=== PATIENT | male | born 1930 | race Caucasian/White ===

== ENCOUNTER 2018-02-14 10:49 | Emergency (ER) | payer OTHER ==
[~2018-02-14] VITALS: Ht 182.9 cm; Wt 73.7 kg
[2018-02-14 11:10] VITALS: BP 163/88; PULSE 76; RESP 26; TEMP 97.5; O2SAT 100
--- NOTE | 2018-02-14 11:42 | RADRPT ---
EXAM DATE/TIME: 02/14/2018 11:29 [place] COMPARISON: No previous studies available for comparison. INDICATIONS : Chest pain and shortness of breath on and off for 6 months. MEDICAL HISTORY : Asthma. Irregular heartbeat. Renal cancer. SURGICAL HISTORY : Right nephrectomy. ENCOUNTER: Initial ACUITY: 4 - 6 months PAIN SCORE: 2/10 LOCATION: Bilateral mid chest. FINDINGS: PA and lateral views of the chest demonstrate the lungs to be symmetrically aerated without evidence of mass, infiltrate or effusion. The cardiomediastinal contours are unremarkable. Osseous structure s are intact with degenerative changes in both shoulders. Spurring of the dorsal spine. CONCLUSION: 1. No acute cardiopulmonary process 2. 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 Malvin Flynn MD on February 14, 2018 at 11:38 Board Certified Radiologist. This report was verified electronically.
[2018-02-14] MEDS ORDERED: PROPOFOL 200 MG/20 ML AMP IV ONE (12:00)
[2018-02-14] MEDS ORDERED: METOPROLOL TARTRATE 5 MG/5 ML VIAL IV ONE (12:00)
[2018-02-14] MEDS ORDERED: DEXAMETHASONE SOD PHOS 4 MG/ML VIAL IV ONE (12:00)
[2018-02-14] MEDS ORDERED: SODIUM CHLORID 0.9% 500 ML INJ 500 ML IV ONE (12:00)
[2018-02-14] MEDS ORDERED: ROCURONIUM INJ 50 MG/5 ML SYRINGE IV PUSH ONE (12:00)
[2018-02-14] MEDS ORDERED: NEOSTIGMINE 5 MG/5 ML SYRINGE IV PUSH ONE (12:00)
[2018-02-14] MEDS ORDERED: ePHEDrine/NS 25 MG/5 ML SYRINGE IV ONE (12:00)
[2018-02-14] MEDS ORDERED: PHENYLEPH/NS 1000 MCG/10 ML SYR IV ONE (12:00)
[2018-02-14] MEDS ORDERED: GLYCOPYRROLATE 1 MG/5 ML SYRINGE IV PUSH ONE (12:00)
[2018-02-14] MEDS ORDERED: ONDANSETRON HCL 4 MG/2 ML VIAL IV ONE (12:00)
--- NOTE | 2018-02-14 12:45 | PD ---
HPI Chief Complaint: Cardiac Complaint Time Seen by Provider: 11:10 Travel History International Travel<30 days: No Contact w/Intl Traveler<30days: No Traveled to known affect area: No History of Present Illness HPI 87-year-old male with significant cardiac disease presents to the emergency department with his for evaluation of worsening shortness of breath. Patient was to be having surgical intervention with Dr. Waters today on his heart. The states that they do not know what it would be until they "open him up." Patient states his shortness of breath has gotten worse over the weekend. He can hardly do any activity without significant shortness of breath , having to bend over to catch his breath. His states that he cannot live like this. He does report pain across his chest with episodes of lightheaded sensation. PFSH Past Medical History Arthritis: Yes Asthma: Yes Autoimmune Disease: No Blood Disorders: No Heart Rhythm Problems: Yes Cancer: No Cardiovascular Problems: Yes High Cholesterol: No Chest Pain: No Congestive Heart Failure: No COPD: No Glaucoma: No Genitourinary: Yes Hypertension: No Kidney Stones: No Musculoskeletal: Yes Neurologic: No Psychiatric: No Respiratory: Yes Myocardial Infarction: No Renal Failure: No Sickle Cell Disease: No Sleep Apnea: No Past Surgical History Abdominal Surgery: No AICD: No Cardiac Surgery: No Ear Surgery: No Endocrine Surgery: No Eye Surgery: Yes Genitourinary Surgery: No Gynecologic Surgery: No Pacemaker: No Thoracic Surgery: No Social History Tobacco Use: No Allergies-Medications (Allergen,Severity, Reaction): Coded Allergies: levofloxacin (Verified Allergy, Unknown, 02/14/18) Reported Meds & Prescriptions Reported Meds & Active Scripts Active Reported Vitamin D3 (Cholecalciferol) 2,000 Unit Cap 2,000 Units PO DAILY Vitamin C (Ascorbic Acid) 250 Mg Chew 250 Mg CHEW BID Eliquis (Apixaban) 5 Mg Tab 5 Mg PO BID Review of Systems Except as stated in HPI: all other systems reviewed are Neg Physical Exam Narrative This is a well-nourished but chronically ill male patient. He is in a wheelchair. He is short of breath while talking to me. His does most of the talking. He is mildly tachypneic. He has normal heart rate. He speaks clearly to me. Data Data Last Documented VS Vital Signs Date Time Temp Pulse Resp B/P (MAP) Pulse Ox O2 Delivery O2 Flow Rate FiO2 02/14/18 13:45 98.2 76 18 186/108 (134) 100 Orders Orders Electrocardiogram (02/14/18 11:14) Basic Metabolic Panel (Bmp) (02/14/18 11:14) Ckmb (Isoenzyme) Profile (02/14/18 11:14) Complete Blood Count With Diff (02/14/18 11:14) Magnesium (Mg) (02/14/18 11:14) Prothrombin Time / Inr (Pt) (02/14/18 11:14) Act Partial Throm Time (Ptt) (02/14/18 11:14) Troponin I (02/14/18 11:14) Chest, Pa & Lat (02/14/18 11:14) Type And Screen (02/14/18 12:45) Diet Heart Healthy (02/14/18 Lunch) Outpt In Bed W No Obs Services (02/14/18 ) Electrophysiology Study Cath (02/14/18 ) IV (02/14/18 13:06) Consent (02/14/18 13:06) ^ Preps (02/14/18 13:06) Urinary Catheter Management GENEVIEVE.Q8H (02/14/18 13:06) ^ Obtain (02/14/18 13:07) ^ Lab Studies (02/14/18 13:07) ^ Write Order (02/14/18 13:07) ^ Iv Setup For Or (02/14/18 13:07) IV (02/14/18 13:07) ^ Iv Piggyback For Or (02/14/18 13:07) Bedside Glucose .Prior to OR (02/14/18 13:07) ^ Medication Indications (02/14/18 13:07) Lactated Ringer's 1000 Ml Inj (Lr 1000 M (02/14/18 14:15) Sodium Chlorid 0.9% 500 Ml Inj (Ns 500 M (02/14/18 14:15) Metoprolol Tartrate (Lopressor) (02/14/18 14:15) Povidone Iod 5% Antisepsis Kit (Betadine (02/14/18 14:15) Chlorhexidine 2% Cloth (Chlorhexidine 2% (02/14/18 14:15) Insulin Human Regular Inj (Novolin R Inj (02/14/18 14:15) Sodium Chlorid 0.9% 500 Ml Inj (Ns 500 M (02/14/18 14:15) Lorazepam (Ativan) (02/14/18 14:15) Fentanyl Inj (Fentanyl Inj) (02/14/18 19:18) Amiodarone Inj (Cordarone Inj) (02/14/18 19:29) Amiodarone Inj (Cordarone Inj) (02/14/18 19:49) Diet Heart Healthy (02/15/18 Breakfast) Prothrombin Time / Inr (Pt) (02/15/18 06:00) Act Partial Throm Time (Ptt) (02/15/18 06:00) Electrocardiogram (02/14/18 ) Electrocardiogram (02/15/18 ) Notify Dr: Blood Pressure (02/14/18 19:58) Notify Dr: Other (02/14/18 19:58) Vital Signs (Adult) Q15MX4,Q30MX4,Q1HX4,QS (02/14/18 19:58) Act Value . ORDERED (02/14/18 19:58) ^ Sheath Care (02/14/18 19:58) Remove Urinary Catheter .ONCE (02/14/18 19:58) ^ Sand Bag (02/14/18 19:58) Activity Bed Rest (02/14/18 19:58) Oxycodone-Acetamin 5-325 Mg (Percocet (02/14/18 20:00) Oxycodone-Acetamin 5-325 Mg (Percocet (02/14/18 20:00) Lorazepam Inj (Ativan Inj) (02/14/18 20:00) Atropine Inj (Atropine Inj) (02/14/18 20:00) Sodium Chlor 0.9% 250 Ml Inj (Ns 250 Ml (02/14/18 20:00) Metoclopramide Inj (Reglan Inj) (02/14/18 20:00) Ondansetron Inj (Zofran Inj) (02/14/18 20:00) Lidocaine 1% Inj (50 Ml) (Xylocaine 1% I (02/14/18 20:00) Bacitracin Oint Packet (Bacitracin Oint (02/14/18 20:00) Apixaban (Eliquis) (02/14/18 21:00) Cholecalciferol (Vitamin D3) (02/15/18 09:00) Amiodarone (Cordarone) (02/14/18 21:00) Dexamethasone Inj (Decadron Inj) (02/14/18 20:50) Diet Heart Healthy (02/14/18 Dinner) Electrocardiogram (02/14/18 ) Electrocardiogram (02/15/18 ) Notify Dr: Blood Pressure (02/14/18 21:16) Notify Dr: Other (02/14/18 21:16) Vital Signs (Adult) Q15MX4,Q30MX4,Q1HX4,QS (02/14/18 21:16) Act Value . ORDERED (02/14/18:16) ^ Sheath Care (02/14/18:16) Remove Urinary Catheter .ONCE (02/14/18 21:16) ^ Sand Bag (02/14/18 21:16) Activity Bed Rest (02/14/18 21:16) Oxycodone-Acetamin 5-325 Mg (Percocet (02/14/18 21:30) Oxycodone-Acetamin 5-325 Mg (Percocet (02/14/18 21:30) Lorazepam Inj (Ativan Inj) (02/14/18 21:30) Atropine Inj (Atropine Inj) (02/14/18 21:30) Sodium Chlor 0.9% 250 Ml Inj (Ns 250 Ml (02/14/18 21:30) Metoclopramide Inj (Reglan Inj) (02/14/18 21:30) Ondansetron Inj (Zofran Inj) (02/14/18 21:30) Lidocaine 1% Inj (50 Ml) (Xylocaine 1% I (02/14/18 21:30) Bacitracin Oint Packet (Bacitracin Oint (02/14/18 21:30) [facility] Nursing Information (02/14/18 20:45) Labs Laboratory Tests Test 02/14/18 12:07 White Blood Count 6.5 TH/MM3 Red Blood Count 4.05 MIL/MM3 Hemoglobin 13.4 GM/DL Hematocrit 40.3 % Mean Corpuscular Volume 99.6 FL Mean Corpuscular Hemoglobin 33.2 PG Mean Corpuscular Hemoglobin Concent 33.3 % Red Cell Distribution Width 13.4 % Platelet Count 215 TH/MM3 Mean Platelet Volume 8.4 FL Neutrophils (%) (Auto) 69.2 % Lymphocytes (%) (Auto) 20.5 % Monocytes (%) (Auto) 6.1 % Eosinophils (%) (Auto) 3.1 % Basophils (%) (Auto) 1.1 % Neutrophils # (Auto) 4.5 TH/MM3 Lymphocytes # (Auto) 1.3 TH/MM3 Monocytes # (Auto) 0.4 TH/MM3 Eosinophils # (Auto) 0.2 TH/MM3 Basophils # (Auto) 0.1 TH/MM3 CBC Comment AUTO DIFF Differential Comment AUTO DIFF CONFIRMED Prothrombin Time 10.5 SEC Prothromb Time International Ratio 1.0 RATIO Activated Partial Thromboplast Time 22.8 SEC Blood Urea Nitrogen 28 MG/DL Creatinine 1.43 MG/DL Random Glucose 91 MG/DL Calcium Level 9.2 MG/DL Magnesium Level 2.2 MG/DL Sodium Level 139 MEQ/L Potassium Level 4.5 MEQ/L Chloride Level 104 MEQ/L Carbon Dioxide Level 26.0 MEQ/L Anion Gap 9 MEQ/L Estimat Glomerular Filtration Rate 47 ML/MIN Total Creatine Kinase 72 U/L Troponin I LESS THAN 0.02 NG/ML MDM Medical Decision Making Medical Screen Exam Complete: Yes Emergency Medical Condition: Yes Medical Record Reviewed: Yes Differential Diagnosis CHF versus valvular disease versus CAD versus PE versus respiratory etiology Narrative Course 87-year-old male presents to the emergency department for worsening shortness of breath, scheduled for cardiac intervention today that was unable to be done due to uncertain reasons. I have contacted Dr. Waters and informed him of the patient's condition here in the emergency department. He requests the patient to go to the DOCU and he will meet him there. I have contacted the DOCU and spoken with Danna. They will be expecting the patient and DOCU room 4. Diagnosis Primary Impression: Chest pain Qualified Codes: R07.9 - Chest pain, unspecified Additional Impression: Dyspnea Qualified Codes: R06.09 - Other forms of dyspnea Condition: Trish Mercado Feb 14, 2018 12:45
[2018-02-14 13:05] LABS: AUTOMATED NEUTROPHIL # 4.5 TH/MM3 (1.8-7.7); BASOPHIL # 0.1 TH/MM3 (0-0.2); BASOPHIL % 1.1 % (0.0-2.0); EOSINOPHIL # 0.2 TH/MM3 (0-0.4); EOSINOPHIL % 3.1 % (0.0-4.0); HEMATOCRIT 40.3 % (39.0-51.0); HEMOGLOBIN 13.4 GM/DL (13.0-17.0); LYMPH % 20.5 % (9.0-44.0); LYMPHOCYTE # 1.3 TH/MM3 (1.0-4.8); MEAN CELL VOLUME 99.6 FL (80.0-100.0); MEAN CORPUSCULAR HEMOGLOBIN 33.2 PG (27.0-34.0); MEAN CORPUSCULAR HGB CONC 33.3 % (32.0-36.0); MEAN PLATELET VOLUME 8.4 FL (7.0-11.0); MONO % 6.1 % (0.0-8.0); MONOCYTE # 0.4 TH/MM3 (0-0.9); NEUT % 69.2 % (16.0-70.0); PLATELET COUNT 215 TH/MM3 (150-450); RED BLOOD COUNT 4.05 MIL/MM3 (4.50-5.90); RED CELL DISTRIBUTION WIDTH 13.4 % (11.6-17.2); WHITE BLOOD COUNT 6.5 TH/MM3 (4.0-11.0)
[2018-02-14 13:15] LABS: PROTHROMBIN TIME - PATIENT 10.5 SEC (9.8-11.6)
[2018-02-14 13:21] LABS: BLOOD UREA NITROGEN 28 MG/DL (7-18); CALCIUM 9.2 MG/DL (8.5-10.1); CHLORIDE 104 MEQ/L (98-107); CREATININE 1.43 MG/DL (0.60-1.30); GLOMERULAR FILTRATION RATE 47 ML/MIN (>89); GLUCOSE,RANDOM 91 MG/DL (74-106); MAGNESIUM 2.2 MG/DL (1.5-2.5); SODIUM (NA) 139 MEQ/L (136-145)
[2018-02-14 13:24] LABS: TROPONIN I LESS THAN 0.02 NG/ML (0.02-0.05)
[2018-02-14 13:45] VITALS: BP 186/108; PULSE 76; RESP 18; TEMP 98.2; O2SAT 100
[2018-02-14] MEDS ORDERED: APIX5TAB PO (14:01)
[2018-02-14] MEDS ORDERED: VITA250C3 CHEW (14:01)
[2018-02-14] MEDS ORDERED: DILT120C9 PO (14:01)
[2018-02-14] MEDS ORDERED: VITA2000 PO (14:01)
[2018-02-14] MEDS ORDERED: METOPROLOL TARTRATE 25 MG TAB PO PRN (14:15)
[2018-02-14] MEDS ORDERED: LORazepam 1 MG TAB SL SCH (14:15)
[2018-02-14] MEDS ORDERED: INSULIN HUMAN REGULAR 1,000 UNITS/10 ML VIAL SQ PRN (14:15)
[2018-02-14] MEDS ORDERED: CHLORHEXIDINE GLUCONATE 2 % 1 PACK (2 CLOTHS) TOPICAL PRN (14:15)
[2018-02-14] MEDS ORDERED: SODIUM CHLORID 0.9% 500 ML INJ 500 ML IV SCH (14:15)
[2018-02-14] MEDS ORDERED: LACTATED RINGER'S 1000 ML IV PRN (14:15)
[2018-02-14] MEDS ORDERED: POVIDONE IODINE 5% (ANTISEPSIS KIT) 4 APPLICATIONS EACH NARE PRN (14:15)
[2018-02-14] MEDS ORDERED: SODIUM CHLORID 0.9% 500 ML IV PRN (14:15)
[2018-02-14] MEDS ORDERED: AMIODARONE HCL 150 MG/3 ML VIAL ONE ×2 (19:29→19:49)
[2018-02-14] MEDS ORDERED: BACITRACIN OINT 0.9 GM PKT TOP ONE ×2 (20:00→21:30)
[2018-02-14] MEDS ORDERED: SODIUM CHLOR 0.9% 250 ML INJ 250 ML IV PRN ×2 (20:00→21:30)
[2018-02-14] MEDS ORDERED: ATROPINE SULFATE 1 MG/ML VIAL IV PUSH PRN ×2 (20:00→21:30)
[2018-02-14] MEDS ORDERED: LORazepam 2 MG/ML VIAL IV PUSH PRN ×2 (20:00→21:30)
[2018-02-14] MEDS ORDERED: oxyCODONE/ACETAMINOPHEN 5 MG/325 MG TAB PO PRN ×4 (20:00→21:30)
[2018-02-14] MEDS ORDERED: ONDANSETRON HCL 4 MG/2 ML VIAL IV PUSH PRN ×2 (20:00→21:30)
[2018-02-14] MEDS ORDERED: LIDOCAINE HCL 1% 50 ML VIAL INFIL PRN ×2 (20:00→21:30)
[2018-02-14] MEDS ORDERED: METOCLOPRAMIDE HCL 10 MG/2 ML VIAL IV PUSH PRN ×2 (20:00→21:30)
--- NOTE | 2018-02-14 20:34 | CATHPROC ---
Patient Name: VILLA DUDLEY Study #: [id number] Initial MD: Agustín Waters Date of : 1930 Study Date: 02/14/2018 Cardiac Catheterization Report 02/14/2018 8:34:07 PM Financial #: [id number] 1 of 11 Patient Name: VILLA DUDLYE Study #: [id number] Initial MD: Agustín Waters Date of : 1930 Study Date: 02/14/2018 Entire Case Report Patient Information Patient Name VILLA DUDLEY Date of 1930 Age 87 years Financial # [id number] Gender M AlternateID Lab Number 2 Room Number Height (in) 72.0 Height (cm) 182.8 BSA 1.95 Weight (lbs) 162.1 Weight (kg) 73.7 Patient Address/Phone Number Home Address [facility] Home Phone Number [facility] [id number] [facility] [id number] Study Information Study Number Admission Scheduled Start Study Start [id number] Feb 14 2018 10:49AM 02/14/2018 Feb 14 2018 3:07PM [place] Electrophysiology Study Admit Source Facility Department Other [facility] - Swatch Checker Physician and Clinical Staff Initial Agustín Luz Mural Artist Alfonso Huber,RT(R) Mural Artist Deb Marte,LOAD DROPPER TECH2 Other Anesthesia, MAIL MACHINE OPERATOR Recorder Viry Pinto RN Scrub Lauren Mancini RCIS Procedures Performed Procedure Location (Site) Vessel Name Ablation Procedure Cardioversion ICE CATHETER INSERT RA Atruim RF Ablation Isthmus Other RF Ablation LT. ATRIUM LT. ATRIUM RF Ablation RA Atruim Equipment 02/14/2018 8:34:07 PM Financial #: [id number] 2 of 11 Patient Name: VILLA DUDLEY Study #: [id number] Initial MD: Agustín Waters Date of : 1930 Study Date: 02/14/2018 Time Dance Artist Description Size Mfg Part Number Used/Scraped NEEDLE, TRANSSEPTAL NRG 98 [id number] 16:44 [facility] Used C1 *[id number] BIOSENSE LOMAX CATHETER, CELSIUS DS, 8MM, F [id number] 15:58 FR 7 Used INC. TYPE QUAD *[id number] [employer]/ EP [id number] 16:44 KIT, TRANSDUCER / AFIB Used PACER *[id number]- CATHETER, TACTICATH ABLAT BUNDLE 16:44 [facility] Used 65 BUNDLE *[id number]- BUNDLE 74818-KAHOHF CATHETER, FR7 OPTIMA SPIRAL 16:44 [facility] FR7 *7554970- Used BUNDLE BUNDLE 42040-IIRCLU SET, COOL POINT TUBING 16:44 [facility] *[id number]- Used BUNDLE BUNDLE SHEATH, FR8.5 STEERABLE SM 16:44 [facility] 71CM [id number] Used 71CM BUNDLE COVER, TRANSDUCER CABLE 612-113 16:44 [employer] Used ACUNAV *[id number] 16:44 CORDIS/PACER SHEATH, FR10 JAMES 11CM FR 10 Used *3050714 16:44 CORDIS/PACER SHEATH, FR9 JAMES 11CM FR 9 [id number] Used [id number] 16:44 [employer] PACK, CCL CUSTOM * Used *4586268 [id number] 15:10 [employer] PACK, CCL CUSTOM * Used *0384610 15:10 MEDLINE PACER ZARCO, LIMB * 2530 *8304915 Used [id number] 16:44 [employer] MEDICAL SHEATH, FR4.5 PRELUDE 11CM FR 4.5 Used 035ACT [id number] 16:44 NAMIC TUBING, HIGH PRESSURE 48" 48" Used *8470491 [id number] 16:44 NAMIC TUBING, HIGH PRESSURE 48" 48" Used *4670128 [id number] 16:44 [employer] BL[employer]ET,WARM AIR CCL * Used *8728128 ATN0819 15:10 [employer] BL[employer],WARM AIR CCL * Used *1948946 518306 15:58 [facility] MEDICAL CATHETER, JSN, QUAD FR 5 Used *9174396 435014 15:58 [facility] MEDICAL CATHETER, JSN, QUAD FR 5 Used *9803234 368854 15:58 [facility] MEDICAL CATHETER, JSN, QUAD FR 5 Used *3304035 727244 15:58 [facility] MEDICAL CATHETER, JSN, QUAD FR 5 Used *6404187 [id number] 15:10 [facility] MEDICAL ELECTRODE KIT, HOLLY X SURFACE * Used *4649077 317490 15:58 [facility] MEDICAL SHEATH, EPS, FR5 FAST CATH FR 5 Used *2522319 722999 15:58 [facility] MEDICAL SHEATH, EPS, FR5 FAST CATH FR 5 Used *6925208 127248 15:58 [facility] MEDICAL SHEATH, EPS, FR5 FAST CATH FR 5 Used *0911040 02/14/2018 8:34:07 PM Financial #: [id number] Patient Name: VILLA DUDLEY Study #: [id number] Initial MD: Agustín Waters Date of : 1930 Study Date: 02/14/[address] 16:44 [facility] MEDICAL SHEATH, EPS, FR6 FAST CATH FR 6 Used *8504301 550621 15:58 [facility] MEDICAL SHEATH, EPS, FR6 FAST CATH FR 6 Used *9471336 472200 16:44 [facility] MEDICAL SHEATH, EPS, FR8 FAST CATH FR 8 Used *8847579 063724 15:58 [facility] MEDICAL SHEATH, EPS, FR8 FAST CATH FR 8 Used *6035490 CATHETER, ACUNAV FR10 ICE [id number] 16:49 ALLISON FR 10 Used (ALLISON) *4108019 [facility] PAD, ELECTROSURGICAL 15:10 * E7506 *1783486 Used SURGICAL GROUNDING (BLUE) Insurance Information Insurance Payor Private Health Insurance Third Alliance Party Third Alliance Party Number [employer] [facility] History: Allergies Allergy Reaction No Known Allergies levofloxacin Labs Hgb (g/dl) Hct (%) RBC (MIL/MM3) WBC (l/cumm) Platelets (thousands) 11.60-17.00 35.00-51.00 4.00-5.90 4.00-11.00 150.00-450.00 13.0 40 4 6 215 Glucose (mg/dl) BUN (mg/dl) Creatinine (mg/dl) BUN:Creatinine (1:x) 74.00-106.00 7.00-18.00 0.50-1.30 10.00-20.00 91 28 1.4 20 Na (meq/l) K (meq/l) 136.00-145.00 3.50-5.10 139 4.5 INR (PTT:PT) 0.90-1.10 1 Medication 02/14/2018 8:34:07 PM Financial #: [id number] Patient Name: VILLA DUDLEY Study #: [id number] Initial MD: Agustín Waters Date of : 1930 Study Date: 02/14/2018 Medication Total Dose (Bolus/Oral) Medication Total Dosage/Unit 1% XYLOCAINE 60 mL AMIODARONE 300 mg HEPARIN 22382 units METOPROLOL 5 mg PROTAMINE 40 mg Medications (Bolus/Oral) Medication Time Given Dosage/Unit Administered By Reason 1% XYLOCAINE 02/14/2018 4:09:54 PM 20 mL Agustín Waters 20 mL 1% XYLOCAINE given in lab by Agustín Waters in Left Groin via Subcutaneous. 1% XYLOCAINE 02/14/2018 4:12:11 PM 20 mL Agustín Waters 20 mL 1% XYLOCAINE given in lab by Agustín Waters in Right Groin via Subcutaneous. 1% XYLOCAINE 02/14/2018 4:47:02 PM 20 mL Agustín Waters 20 mL 1% XYLOCAINE given in lab by Agustín Waters in Left Groin via Subcutaneous. Ordered by Lux Waters. HEPARIN 02/14/2018 4:51:05 PM 10624 units Anesthesia, MAIL MACHINE OPERATOR As per physicians v erbal order 00338 units HEPARIN given in lab by Anesthesia, MAIL MACHINE OPERATOR via Peripheral IV. Ordered by Agustín Waters. [place] son: As per physicians verbal order. HEPARIN 02/14/2018 6:12:05 PM 2000 units Anesthesia, MAIL MACHINE OPERATOR As per physicians ve rbal order 2000 units HEPARIN given in lab by Anesthesia, MAIL MACHINE OPERATOR via Peripheral IV. Ordered by Agustín Waters. Reas on: As per physicians verbal order. METOPROLOL 02/14/2018 6:56:15 PM 5 mg Anesthesia, MAIL MACHINE OPERATOR As per physicians juan jose bal order 5 mg METOPROLOL given in lab by Anesthesia, MAIL MACHINE OPERATOR via Peripheral IV. Ordered by Agustín Waters. Reason: As per physicians verbal order. AMIODARONE 02/14/2018 7:35:21 PM 300 mg Anesthesia, MAIL MACHINE OPERATOR As per physicians v erbal order 300 mg AMIODARONE given in lab by Anesthesia, MAIL MACHINE OPERATOR via Peripheral IV. Ordered by Agustín Waters. Reaso n: As per physicians verbal order. PROTAMINE 02/14/2018 7:51:30 PM 40 mg Anesthesia, MAIL MACHINE OPERATOR As per physicians juan jose bal order 40 mg PROTAMINE given in lab by Anesthesia, MAIL MACHINE OPERATOR via Peripheral IV. Ordered by Agustín Waters. Reason: As per physicians verbal order. Medication (Drip) Medication Time Given Dosage/Unit Concentration/Unit Diluent (ml) Solution HEPARIN DRIP 02/14/2018 5:32:15 PM 1000 units/hr 52603 units 250 D5W 1000 units/hr HEPARIN DRIP given in lab by Anesthesia, MAIL MACHINE OPERATOR via Peripheral IV. Pump/Drip Flow = 10 ml /hr [place] [address] units in 250 ml. Ordered by Agustín Waters. Reason: As per physicians verbal order. ISUPREL 02/14/2018 6:36:45 PM 10 mcg/min 1 mg 250 NaCl .9 10 mcg/min ISUPREL given in lab by Anesthesia, MAIL MACHINE OPERATOR via Peripheral IV. Pump/Drip Flow = 150 ml/hr usi ng NaCl .9 with a concentration of 1 mg in 250 ml. Ordered by Agustín Waters. 02/14/2018 8:34:07 PM Financial #: [id number] of Patient Name: VILLA DUDLEY Study #: [id number] Initial MD: Agustín Waters Date of : 1930 Study Date: 02/14/2018 Initial Case Assessment Cardiovascular HR Rhythm NIBP Chest Pain 76 afl 214/116 0 Edema Present Skin color Skin None Normal Warm Dry Circulatory - Right Pulses Dorsalis Pedis 1 Scale (0,1,2,3,4,d) Circulatory - Left Pulses Dorsalis Pedis 1 Scale (0,1,2,3,4,d) Circulatory - Lower Extremities Color Lower Right Color Lower Left Normal Normal Neurological State Oriented to time-place- Alert Moves all extremities person Respiration - General Respiration Rate SpO2 (%) (B/min) 18 100 02/14/2018 8:34:07 PM Financial #: [id number] 6 of 11 Patient Name: VILLA DUDLEY Study #: [id number] Initial MD: Agustín Waters Date of : 1930 Study Date: 02/14/2018 Final Case Assessment Cardiovascular HR Rhythm NIBP Chest Pain 85 sr 123/79 0 Edema Present Skin color Skin None Normal Warm Dry Circulatory - Right Pulses Dorsalis Pedis 1 Scale (0,1,2,3,4,d) Circulatory - Left Pulses Dorsalis Pedis 1 Scale (0,1,2,3,4,d) Circulatory - Lower Extremities Color Lower Right Color Lower Left Normal Normal Neurological State Lethargic Moves all extremities Respiration - General Respiration Rate SpO2 (%) O2 (lpm) (B/min) 16 100 6 Chronological Log Time Study Chronological Log 15:33:54 Patient arrived via Bed. 15:33:55 Patient Name, D.O.B, / Armband Verified By R.N. 15:33:56 Consent signed by the physician and the patient and verified by the Sw[facility]er staff. 15:33:56 Pre-op and post- op instructions given; patient acknowledges understanding of instructions. 15:33:57 Verbal Stimulation=2 Physical Stimulation=2 Airway=2 Respiration=2 TOTAL=8. (0=absent, 1=li mited, 2=present) 15:34:00 Patient has been NPO for More than 6Hrs. 15:34:01 Skin Breakdown-none perpt 15:34:10 Patient Warmer Placed on the Table. 15:34:11 Disposable Defibrillator Pads Placed On Patient. 02/14/2018 8:34:07 PM Financial #: [id number] 7 of 11 Patient Name: VILLA DUDLEY Study #: [id number] Initial MD: Agustín Waters Date of : 1930 Study Date: 02/14/2018 15:34:13 Travis Prominences Protected 15:34:14 A # 20 IV was noted in the Antecubital (left). Grade = 0 0.9ns kvo 15:34:15 A # 20 IV was noted in the Antecubital (right). Grade = 0 0.9ns kvo 15:34:16 History and physical on the chart or being dictated. 15:39:28 Anesthesia at bedside. Assumes care of patient. Assessment: Initial Case, HR=76 BPM, Rhythm=afl, QADE=070/116 mmhg, Chest Pain=0, Edema=None, Color=Normal, Skin = Warm, Dry Right Pulses: Lorne Ped=1 Left Pulses: Lorne Ped=1 15:49:17 Lower Right Extremities: Color=Normal Lower Left Extremities: Color=Normal Neurological: State=Alert, Ox3, [place] Respiration: Resp=18 B/min, KiN0=211 % 15:49:54 Table restraints applied according to hospital policy 15:52:01 Bilateral groins prepped with 2% chlorhexidine, and draped after a 3 minute wait time. 16:05:29 Reference ECG taken 16:06:28 MD arrived. Time Out. Correct patient, procedure, procedure equipment, site and side verified with physicia n present. Time 16:09:07 concurred by MD, individual staff and MAIL MACHINE OPERATOR. Time Out #2 - Consents verified, patient in correct position, all results are labled and displa yed, safety precautions 16:09:30 taken, antibiotics administered. Time out concurred by MD, individual staff and MAIL MACHINE OPERATOR in procedu re 16:09:45 Case Start 16:09:54 20 mL 1% XYLOCAINE given in lab by Agustín Waters in Left Groin via Subcutaneous. 16:10:18 Vascular access was obtained in the Fem Vein (left). 16:10:23 Vascular access was obtained in the Fem Vein (left). 16:11:00 Vascular access was obtained in the Fem Vein (left). 16:11:32 A SHEATH, EPS, FR5 FAST CATH FR 5 was advanced into the Fem Vein (left) using the Modified Seldinger technique. 16:11:39 A SHEATH, EPS, FR5 FAST CATH FR 5 was advanced into the Fem Vein (left) using the Modified Seldinger technique. 16:11:42 A SHEATH, EPS, FR5 FAST CATH FR 5 was advanced into the Fem Vein (left) using the Modified Seldinger technique. 16:12:11 20 mL 1% XYLOCAINE given in lab by Agustín Waters in Right Groin via Subcutaneous. 16:12:52 Vascular access was obtained in the Fem Vein (right). 16:12:53 Vascular access was obtained in the Fem Vein (right). 16:12:57 A SHEATH, EPS, FR6 FAST CATH FR 6 was advanced into the Fem Vein (right) using the Modified Seldinger technique. 16:13:06 A SHEATH, EPS, FR8 FAST CATH FR 8 was advanced into the Fem Vein (right) using the Modified Seldinger technique. A CATHETER, JSN, QUAD FR 5 was advanced vis Fem Vein (left) and placed in the CS. Placement was visually 16:15:00 confirmed under fluoroscopy. A CATHETER, JSN, QUAD FR 5 was advanced vis Fem Vein (left) and placed in the HIS. Placement wa s visually 16:15:42 confirmed under fluoroscopy. A CATHETER, JSN, QUAD FR 5 was advanced vis Fem Vein (left) and placed in the RVA. Placement wa s visually 16:15:46 confirmed under fluoroscopy. A CATHETER, JSN, QUAD FR 5 was advanced vis Fem Vein (right) and placed in the HRA. Placement w as visually 16:15:56 confirmed under fluoroscopy. A CATHETER, CELSIUS DS, 8MM, F TYPE QUAD FR 7 was advanced vis Fem Vein (right) and placed in t he Isthmus. 16:16:45 Placement was visually confirmed under fluoroscopy. 02/14/2018 8:34:07 PM Financial #: [id number] Patient Name: VILLA DUDLEY Study #: [id number] Initial MD: Agustín Waters Date of : 1930 Study Date: 02/14/2018 16:17:32 RF Ablation of the Isthmus with a CATHETER, CELSIUS DS, 8MM, F TYPE QUAD FR 7. 16:26:05 Converting to an afib ablation. Set up in progress. 16:35:54 Pt intubated with anesthesiologist present. 16:47:02 20 mL 1% XYLOCAINE given in lab by Agustín Waters in Left Groin via Subcutaneous. Ordered by Agustín Waters. 16:47:11 A SHEATH, FR4.5 PRELUDE 11CM FR 4.5 was advanced into the Fem Art (left) using the Modified Seldinger technique. A SHEATH, FR10 JAMES 11CM FR 10 was exchanged in the Fem Vein (left). This was necessary in or cesar to 16:47:42 accomodate a larger catheter. A SHEATH, FR8.5 STEERABLE SM 71CM BUNDLE 71CM was exchanged in the Fem Vein (right). This was n ecessary in 16:48:26 order to accomodate a larger catheter. 16:48:46 CATHETER, ACUNAV FR10 ICE ([place]) FR 10 Was Positioned. 16:49:06 [place] needle in 16:50:03 A eps was advanced to the right atrium and passed through the septal wall to the left atriu m. 16:51:00 [place]. [address] units HEPARIN given in lab by Anesthesia, MAIL MACHINE OPERATOR via Peripheral IV. Ordered by Rhea Watesr Reason: As per 16:51:05 physicians verbal order. 16:59:00 Activated Clotting Time Drawn 17:01:14 Mapping in progress. 17:03:54 Mapping complete. 17:06:06 RF Ablation of the LT. ATRIUM with a CATHETER, TACTICATH ABLAT 65 BUNDLE. 17:06:40 Ablation procedure performed: AFIB. 17:06:46 EP Procedure was performed. 17:07:06 ACT (Normal Range 90-180) = 383 17:23:57 Activated Clotting Time Drawn 17:30:22 ACT (Normal Range 90-180) = 353 1000 units/hr HEPARIN DRIP given in lab by Anesthesia, MAIL MACHINE OPERATOR via Peripheral IV. Pump/Drip Flow = 10 ml/hr using 17:32:15 D5[place] [address] units in 250 ml. Ordered by Hanscy. Jt Reason: As per lavelle reed verbal order. 18:05:08 Activated Clotting Time Drawn 18:11:57 ACT (Normal Range 90-180) = 322 2000 units HEPARIN given in lab by Anesthesia, MAIL MACHINE OPERATOR via Peripheral IV. Ordered by Agustín Waters Reason: As per 18:12:05 physicians verbal order. 18:19:08 Activated Clotting Time Drawn 18:25:09 ACT (Normal Range 90-180) = 379 18:31:47 ECG rhythm of AF noted. Patient cardioverted at 200 joules. Success synch 10 mcg/min ISUPREL given in lab by Anesthesia, MAIL MACHINE OPERATOR via Peripheral IV. Pump/Drip Flow = 150 ml/ hr using NaCl .9 18:36:45 with a concentration of 1 mg in 250 ml. Ordered by Agustín Waters. 18:46:58 Isuprel off. 18:50:00 RF Ablation of the LT. ATRIUM with a CATHETER, TACTICATH ABLAT 65 BUNDLE. 5 mg METOPROLOL given in lab by Anesthesia, MAIL MACHINE OPERATOR via Peripheral IV. Ordered by Agustín Waters. R connor: As per 18:56:15 physicians verbal order. 18:56:50 ECG rhythm of AF noted. Patient cardioverted at 200 joules. Success atrial tachycardia 18:58:17 RF Ablation of the LT. ATRIUM with a CATHETER, TACTICATH ABLAT 65 BUNDLE. 19:08:59 ECG rhythm of AF noted. Patient cardioverted at 200 joules. Incomplete Success synch 02/14/2018 8:34:07 PM Financial #: [id number] Patient Name: VILLA DUDLEY Study #: [id number] Initial MD: Agustín Waters Date of : 1930 Study Date: 02/14/2018 19:13:14 RF Ablation of the RA with a CATHETER, TACTICATH ABLAT 65 BUNDLE. 19:19:00 Activated Clotting Time Drawn 19:27:12 ACT (Normal Range 90-180) = 341 300 mg AMIODARONE given in lab by Anesthesia, MAIL MACHINE OPERATOR via Peripheral IV. Ordered by Agustín Waters . Reason: As per 19:35:21 physicians verbal order. 19:46:15 Monitor Sr 19:46:32 All catheter(s) removed without difficulty 19:48:21 Heparin off A SHEATH, FR9 JAMES 11CM FR 9 was exchanged in the Fem Vein (right). This was necessary in or cesar to minimize 19:48:49 site leakage. 19:49:25 PACU called. Spoke to Angel. 19:49:39 Bedside Report will be given. 40 mg PROTAMINE given in lab by Anesthesia, MAIL MACHINE OPERATOR via Peripheral IV. Ordered by Agustín Waters. Reason: As per 19:51:30 physicians verbal order. 20:02:51 Activated Clotting Time Drawn 20:05:00 ACT (Normal Range 90-180) = 180 20:06:12 Right groin sheath removed; pressure applied to access site by DC. 20:06:26 Left arterial sheath removed; pressure applied to access site by DB. 20:16:20 Left Femoral venous sheaths removed; pressure applied to access site by DB. 20:26:48 Sterile dressing applied to site right groin. Site WNL 20:33:07 Case End Assessment: Final Case, HR=85 BPM, Rhythm=sr, FIKP=624/79 mmhg, Chest Pain=0, Edema=None, [place] r=Normal, Skin = Warm, Dry Right Pulses: Lorne Ped=1 Left Pulses: Lorne Ped=1 20:33:12 Lower Right Extremities: Color=Normal Lower Left Extremities: Color=Normal Neurological: State=Lethargic, [place] Respiration: Resp=16 B/min, EmZ1=498 %, O2=6 lpm 20:33:50 Defibrillator and ground pads removed. Skin intact. 20:35:10 Sterile dressing applied to site left groin. Site WNL. 20:35:57 Patient moved to [facility] End Study - Contrast Media Used In Study Contrast Total Opened (mL) Total Used (mL) Total Wasted (mL) Unspecified 0 0 0 02/14/2018 8:34:07 PM Financial #: [id number] Patient Name: VILLA DUDLEY Study #: [id number] Initial MD: Agustín Waters Date of : 1930 Study Date: 02/14/2018 End Study - Maximum Contrast Load Max Contrast Load (mL) 263.1 End Study - Radiation Exposure Fluoro Time (minutes) 9.3 End Study - Patient Disposition Complications Transferred To Interventional Outcome No Telemetry Bed successful 02/14/2018 8:34:07 PM Financial #: [id number]
[2018-02-14] MEDS ORDERED: DO NOT ADM ANY ANTICOAGULANT DRUGS PRN (20:45)
[2018-02-14] MEDS ORDERED: DEXAMETHASONE SOD PHOS 4 MG/ML VIAL ONE (20:50)
[2018-02-14] MEDS: APIXABAN 5 MG TABLET PO SCH (21:00)
[2018-02-14] MEDS: AMIODARONE 200 MG TAB PO SCH (21:00)
[2018-02-14 22:58] VITALS: BP 148/92; PULSE 82; RESP 16; TEMP 98.2; O2SAT 100
[2018-02-14 23:00] VITALS: PULSE 82
[2018-02-15] VITALS (11 sets, daily range): BP systolic 108–110; BP diastolic 62–65; PULSE 72–80; RESP 16; TEMP 98.4; O2SAT 100
[2018-02-15 06:50] LABS: INTERNATIONAL NORMALIZED RATIO 1.1 RATIO; PROTHROMBIN TIME - PATIENT 10.7 SEC (9.8-11.6)
[2018-02-15] MEDS ORDERED: AMIO200T PO ×2 (08:34)
--- NOTE | 2018-02-15 08:37 | PD.CARD.PN ---
Subjective Subjective Remarks Feels okay. Objective Medications Current Medications Medications (Trade) Dose Ordered Sig/Kate Route Start Time Stop Time Status Last Admin Lactated Ringer's 1,000 ml @ 30 mls/hr Q24H PRN IV 02/14/18 14:15 02/17/18 14:14 Sodium Chloride 500 ml @ 30 mls/hr [id number] PRN IV 02/14/18 14:15 02/17/18 14:14 (Lopressor) 25 mg [employer]UAL [employer] PRN PO 02/14/18 14:15 02/17/18 14:14 (Betadine 5% Antisepsis Kit) 1 applic [employer] PRN EACH NARE 02/14/18 14:15 02/17/18 14:14 (Chlorhexidine 2% Cloth) 3 pack [employer] PRN TOPICAL 02/14/18 14:15 02/17/18 14:14 (NovoLIN R INJ) See Protocol Table ... VISUAL SUPERVISOR PRN SQ 02/14/18 14:15 02/17/18 14:14 Sodium Chloride 500 ml @ 30 mls/hr [id number] IV 02/14/18 14:15 (Ativan) 1 mg [employer]UAL SUPER[employer] SL 02/14/18 14:15 02/17/18 14:14 (Percocet 5-325 Mg) 1 tab Q4H PRN PO 02/14/18 20:00 (Percocet 5-325 Mg) 2 tab Q4H PRN PO 02/14/18 20:00 (Ativan Inj) 0.5 mg UNSCH PRN IV PUSH 02/14/18 20:00 02/15/18 19:59 (Atropine Inj) 0.5 mg UNSCH PRN IV PUSH 02/14/18 20:00 Sodium Chloride 250 ml @ 500 mls/hr ONCE PRN IV 02/14/18 20:00 02/15/18 19:59 (Reglan Inj) 10 mg Q4H PRN IV PUSH 02/14/18 20:00 (Zofran Inj) 4 mg Q4H PRN IV PUSH 02/14/18 20:00 (Xylocaine 1% Inj (50 ml)) 10 ml UNSCH PRN INFIL 02/14/18 20:00 02/15/18 19:59 (Eliquis) 5 mg BID PO 02/14/18 21:00 02/14/18 21:00 (Vitamin D3) 2,000 units DAILY PO 02/15/18 09:00 (Cordarone) 400 mg Q12HR PO 02/14/18 21:00 02/19/18 09:01 02/14/18 21:00 (Percocet 5-325 Mg) 1 tab Q4H PRN PO 02/14/18 21:30 (Percocet 5-325 Mg) 2 tab Q4H PRN PO 02/14/18 21:30 (Ativan Inj) 0.5 mg UNSCH PRN IV PUSH 02/14/18 21:30 02/15/18 21:29 (Atropine Inj) 0.5 mg UNSCH PRN IV PUSH 02/14/18 21:30 Sodium Chloride 250 ml @ 500 mls/hr ONCE PRN IV 02/14/18 21:30 02/15/18 21:29 (Reglan Inj) 10 mg Q4H PRN IV PUSH 02/14/18 21:30 (Zofran Inj) 4 mg Q4H PRN IV PUSH 02/14/18 21:30 (Xylocaine 1% Inj (50 ml)) 10 ml UNSCH PRN INFIL 02/14/18 21:30 02/15/18 21:29 Miscellaneous Information ALL NURSING DEPARTME... UNSCH PRN .XX 02/14/18 20:45 02/15/18 20:44 Vital Signs / I&O Vital Signs Date Time Temp Pulse Resp B/P (MAP) Pulse Ox O2 Delivery O2 Flow Rate FiO2 02/15/18 07:00 78 16 110/62 (78) 100 02/15/18 06:00 76 02/15/18 05:00 76 02/15/18 04:00 78 02/15/18 03:00 98.4 78 16 108/65 (79) 100 02/15/18 03:00 78 02/15/18 02:00 78 02/15/18 01:00 80 02/15/18 00:00 80 02/14/18 23:00 82 02/14/18 22:58 98.2 82 16 148/92 (110) 100 02/14/18 22:15 80 14 154/89 (110) 100 Nasal Cannula 2 02/14/18 22:00 80 14 163/92 (115) 100 Nasal Cannula 2 02/14/18 21:45 81 16 168/90 (116) 100 Nasal Cannula 2 02/14/18 21:30 81 16 168/90 (116) 100 Nasal Cannula 2 02/14/18 21:15 79 14 166/93 (117) 100 Nasal Cannula 2 02/14/18 21:00 76 14 176/77 (110) 100 Nasal Cannula 2 02/14/18 20:45 97.6 73 16 137/80 (99) 100 Nasal Cannula 2 02/14/18 13:45 98.2 76 18 186/108 (134) 100 02/14/18 11:10 97.5 76 26 163/88 (113) 100 I/O 02/14/18 02/14/18 02/14/18 02/15/18 02/15/18 02/15/18 07:00 15:00 23:00 07:00 15:00 23:00 Intake Total 480 ml Output Total 650 ml Balance -170 ml Intake Oral 480 ml Output Urine Total 650 ml Physical Exam GENERAL: Well-nourished, well-developed patient. SKIN: Warm and dry. Groin site soft without bruising or bleeding HEAD: Normocephalic. EYES: No scleral icterus. No injection or drainage. NECK: Supple, trachea midline. No JVD or lymphadenopathy. CARDIOVASCULAR: Regular rate and rhythm without murmurs, gallops, or rubs. RESPIRATORY: Breath sounds equal bilaterally. No accessory muscle use. GASTROINTESTINAL: Abdomen soft, non-tender, nondistended. EXTREMITIES: No cyanosis, or edema. NEUROLOGICAL: Awake, alert, and oriented x 3. Non-focal. Laboratory Laboratory Tests Test 02/14/18 12:07 02/15/18 06:12 White Blood Count 6.5 TH/MM3 Red Blood Count 4.05 MIL/MM3 Hemoglobin 13.4 GM/DL Hematocrit 40.3 % Mean Corpuscular Volume 99.6 FL Mean Corpuscular Hemoglobin 33.2 PG Mean Corpuscular Hemoglobin Concent 33.3 % Red Cell Distribution Width 13.4 % Platelet Count 215 TH/MM3 Mean Platelet Volume 8.4 FL Neutrophils (%) (Auto) 69.2 % Lymphocytes (%) (Auto) 20.5 % Monocytes (%) (Auto) 6.1 % Eosinophils (%) (Auto) 3.1 % Basophils (%) (Auto) 1.1 % Neutrophils # (Auto) 4.5 TH/MM3 Lymphocytes # (Auto) 1.3 TH/MM3 Monocytes # (Auto) 0.4 TH/MM3 Eosinophils # (Auto) 0.2 TH/MM3 Basophils # (Auto) 0.1 TH/MM3 CBC Comment AUTO DIFF Differential Comment AUTO DIFF CONFIRMED Prothrombin Time 10.5 SEC 10.7 SEC Prothromb Time International Ratio 1.0 RATIO 1.1 RATIO Activated Partial Thromboplast Time 22.8 SEC 23.3 SEC Blood Urea Nitrogen 28 MG/DL Creatinine 1.43 MG/DL Random Glucose 91 MG/DL Calcium Level 9.2 MG/DL Magnesium Level 2.2 MG/DL Sodium Level 139 MEQ/L Potassium Level 4.5 MEQ/L Chloride Level 104 MEQ/L Carbon Dioxide Level 26.0 MEQ/L Anion Gap 9 MEQ/L Estimat Glomerular Filtration Rate 47 ML/MIN Total Creatine Kinase 72 U/L Troponin I LESS THAN 0.02 NG/ML Imaging Last 24 hours Impressions Chest X-Ray 02/14/18 1114 Signed Impressions: Service Date/Time: Wednesday, February 14, 2018 11:29 - CONCLUSION: 1. No acute cardiopulmonary process 2. 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 Malvin Flynn MD Assessment and Plan Problem List: (1) Atrial fibrillation ICD Codes: I48.91 - Unspecified atrial fibrillation Plan: Normal sinus rhythm on telemetry status post ablation. (2) S/P ablation of atrial fibrillation ICD Codes: Z98.890 - Other specified postprocedural states; Z86.79 - Personal history of other diseases of the circulatory system Plan: Amiodarone 400 mg p.o. twice daily 5 days then 200 mg daily. Continue Eliquis. Discharge home, follow-up with Dr. Waters in 3 weeks per my discussion with him. Problem Qualifiers (1) Atrial fibrillation: Qualified Codes: I48.0 - Paroxysmal atrial fibrillation Marika Waetrs Feb 15, 2018 08:37
[2018-02-15] MEDS: APIXABAN 5 MG TABLET PO SCH (08:52)
[2018-02-15] MEDS: AMIODARONE 200 MG TAB PO SCH (08:54)
[2018-02-15] MEDS ORDERED: CHOLECALCIFEROL (VIT D3) 1000 UNIT TAB PO SCH (09:00)
--- NOTE | 2018-02-15 13:11 | EKG ---
Date Performed: 02/15/2018 Time Performed: 10:12:56 PTAGE: 87 years EKG: Sinus rhythm with PAC(s) with 1st degree A-V block Abnormal ECG Compared to prior electrocardiogram, Premature at rial contraction are now present PREVIOUS TRACING : 02/14/2018 21.58 DOCTOR: Jamie Mcmillan Interpretating Date/Time 02/15/2018 13:09:27
--- NOTE | 2018-02-15 20:35 | EKG ---
Date Performed: 02/14/2018 Time Performed: 21:58:59 PTAGE: 87 years EKG: Sinus rhythm WITH FIRST DEGREE AV BLOCK MODERATE INTRAVENTRICULAR CONDUCTION DELAY NONSPECIFIC T-WAVE ABNORMALITY ABNORMAL ECG PREVIOUS TRACING : 02/14/2018 11.58 Since the previous tracing, no significant change noted DOCTOR: Steve Christopher Interpretating Date/Time 02/15/2018 20:33:36
--- NOTE | 2018-02-15 20:59 | EKG ---
Date Performed: 02/14/2018 Time Performed: 11:58:13 PTAGE: 87 years EKG: BASELINE ARTIFACT, PROBABLE Sinus rhythm SEPTAL MYOCARDIAL INFARCTION ABNORMAL ECG PREVIOUS TRACING : 12/21/2004 11.30 DOCTOR: Steve Christopher Interpretating Date/Time 02/15/2018 20:58:06
== END 2018-02-15 10:18 | disposition home or self-care (01) ==
LOC: NED 10:49 → HDIC 13:58 → HCIS 22:53 → NED 02-15 10:18
DX: I48.0 Paroxysmal atrial fibrillation (principal); R07.9 Chest pain, unspecified; R06.02 Shortness of breath; Z79.01 Long term (current) use of anticoagulants
CPT/HCPCS: 71046; 80048; 82550; 83735; 84484; 85002; 85025; 85610; 85730; 86850; 86900; 86901; 92960; 93005; 93613; 93623; 93656; 93657; 93662; 99284; C1730; C1731; C1732; C1759; C1766; C2630; J0282; J1100; J1644; J2250; J2370; J2405; J2710; J2720; J3010; J7040